=== PATIENT | male | born 1950 | race Caucasian/White ===

== ENCOUNTER → 2019-05-06 10:06 | Outpatient (CLI) | payer OTHER, SELFPAY ==
--- NOTE | 2019-05-06 | DI.RAD.S_ITS ---
PROCEDURE: FL BARIUM SWALLOW W SPEECH INDICATIONS: Other dysphagia TECHNIQUE: Examination was conducted in conjunction with speech pathology per standard protocol. In the lateral projection, filming was performed of the patient swallowing. AP projection filming may also be performed with patient swallowing. COMPARISON: None. FINDINGS: Function: The oral preparatory phase appears normal, with proper containment. The subsequent oral propulsive phase, pharyngeal phase, and esophageal phase of swallowing also appear normal with all proffered substances. Occasional flash laryngeal penetration. No definite tracheal aspiration. No pathologic vallecular pooling. Morphology: No cricopharyngeal bar is identified. No cervical esophageal webs. No Zenker's diverticulum. No strictures. IMPRESSION: Occasional flash laryngeal penetration Dictated by: Alexis Wilson M.D. on 05/06/2019 at 12:44 Approved by: Alexis Wilson M.D. on 05/06/2019 at 12:45
--- NOTE | 2019-05-06 16:50 | ST.SWALLOW ---
Visit Care Team Role Provider Type Clint Green MD Primary Care Provider Physician Specialty: Internal Medicine Address: [address] [place] [address], [id number] Email: [email or web address] Santo Baker MD Attending Provider Physician Specialty: Ear, Nose, Throat Address: [address] [place] [address], [id number] Email: [email or web address] Modified Barium Swallow Study [email or web address] Modified Barium Swallow Study Start: 05/06/19 10:58 Freq: Status: Active Protocol: Document 05/06/19 10:59 KHARI (Rec: 05/06/19 12:28 KHARI [id number]) Modified Barium Swallow Study Total Time Visit Start Time 10:20 Visit Stop Time 10:50 Total Visit Minutes [address] Chirag Ortiz Reason for Referral Dysphagia Setting Setting Outpatient Care Patient Information Identification Type Name,ID Card Patient History The pt is a pleasant 68-yr-old male who has been experiencing frequent coughing and choking events with intake of solids only over the last year, one of which nearly became an emergency. He has just completed a 90-day trial of medication for acid reflux, which he stated appears to have helped significantly, as he has not had any such episodes since being on the medication. 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 He denies residual effects and denies hx of pneumonia or neurological disease including stroke. Subjective Observations The pt arrived on time, self- ambulating. He provided case history and was able to follow all instructions throughout the study. Patient Positioning Position View Lat-A/P Imaging Lateral View Textures Administered Trials Presented Thin Liquid via Spoon,Thin Liquid via Cup,Poulan Liquid via Spoon,Poulan Liquid via Cup,Honey Liquid via Spoon, Dysphagia Blenderized Textures ,Regular Textures Oral Phase Source: MBSIMP (TM) (C) Bolus Specific Scoring Grid Lip Closure No Impairment (WNL) Tongue Control During Bolus Hold No Impairment (WNL) Bolus Prep/Mastication No Impairment (WNL) Bolus Transport/Lingual Motion No Impairment (WNL) A/P Lingual Propulsion Delay No Oral Residue WFL Residue Clearing No Impairment (WNL) Nasal Regurgitation No Additional Oral Phase Observations Oral Peripheral Exam: All features are symmetrical and WNL of strength, coordination and ROM. Pt has natural dentition with some individual molars missing; remaining dentition in adequate condition. The pt denies difficulty with mastication. Oral Phase: WNL. Pharyngeal Phase Source: MBSIMP (TM) (C) Bolus Specific Scoring Grid Delayed Initiation of Pharyngeal Swallow Yes: Frequently to level of vallecula w/ all consistencies Soft Palate Elevation No Impairment (WNL) Tongue Base Strength/Range of Motion WFL Residue Along the Tongue Base Yes: Trace to mild, reduced w/ increased bolus bulk Clearance of Residue Along Tongue Base WFL Laryngeal Elevation Mild Impairment Anterior Hyoid Movement WFL Epiglottic Range of Motion No Impairment (WNL) Vallecular Residue Yes: Trace Clearance of Vallecular Residue WFL Laryngeal Vestibular Closure WFL Pharyngeal Stripping Wave No Impairment (WNL) Pharyngeal Contraction No Impairment (WNL) Posterior Pharyngeal Wall Residue No Upper Esophageal Sphincter Opening No Impairment (WNL) Residue in the Pyriform Sinuses Yes: Occasional trace, reduced w/ increased bolus bulk Clearance of Residue in the Pyriform WFL Sinuses Pharyngoesophageal Backflow Observed No Additional Pharyngeal Phase Observations Flash penetration of thin liquid was observed during 1 of 2 consecutive cup sip trials. No cough reflex. No other penetration or aspiration was observed. Minimally impaired laryngeal elevation and closure of the laryngeal vestibule is present ; however, pharyngeal swallow is WFL for pt's age. A/P View Textures Administered Trials Presented Thin Liquid via Cup,Poulan Liquid via Cup,Pudding Thick Liquid via Spoon,Barium Tablet A/P View Observations Pharyngeal Contraction No Impairment (WNL) Esophageal Clearance Upright Position Minimal Impairment Additional Observations Slowed emptying of pudding into stomach was observed and did clear with thin liquid wash. NTL and barium tablet cleared the esophagus in a timely manner. No retrograde movement observed. Please refer to Radiologist's report. Clinical Impressions Findings The pt presented with swallow within functional limits. Minimally reduced laryngeal elevation and closure of laryngeal vestibule was present, contributing to one episode of flash penetration of thin liquid (first of four swallows) without cough reflex . The pt consumed a second trial of consecutive sips of thin liquid without penetration or aspiration. Suspect GERD/LPR was the major contributor to the pt's swallow difficulties. The pt may benefit from a short course of dysphagia treatment to establish an exercise program to increase/ maintain strength of swallow musculature, particularly if acid reflux recurs; however, he is at low risk of aspiration and function is largely normal for his age. Recommendations Diet Liquids Order Thin Diet Order Regular Medication Recommendation As Tolerated Aspiration Precautions Recommended Precautions Upright at 90 Degrees Treatment Plan Additional Recommended Referrals Pt is referred back to Dr. Ortiz for follow-up. Placement Recommendation After Discharge Home
== END ==
PROVIDERS: PCP Internal Medicine; Visit Provider Otolaryngology
DX: R13.19 Other dysphagia (principal)
CPT/HCPCS: 74230; 92611

== ENCOUNTER → 2020-01-22 18:44 | Outpatient (ROUT) | payer OTHER, SELFPAY ==
[2020-01-22 19:43] LABS: Aspartate Aminotransferase 24 IU/L (17-59); BUN Creatinine Ratio 30.4 (6-22); Blood Urea Nitrogen 28 mg/dL (9-20); Calcium 9.2 mg/dL (8.4-10.2); Carbon Dioxide 32 mmol/L (22-32); Chloride 101 mmol/L (98-107); Cholesterol 164 mg/dL (140-199); Estimated Glomerular Filt Rate > 60.0 mL/min (>60); Glucose 93 mg/dL (80-110); HDL Cholesterol 34 mg/dL (40-60); HEMOLYSIS < 15 (0-50); LDL Cholesterol Calculated 70 mg/dL (<100); Potassium 4.1 mmol/L (3.4-5.1); Sodium 138 mmol/L (137-145); Triglycerides 299 mg/dL (35-150)
[2020-01-22 20:15] LABS: Prostate Specific Antigen 1.27 ng/mL (0.10-4.00)
== END ==
PROVIDERS: PCP Internal Medicine; Visit Provider Internal Medicine
DX: E78.2 Mixed hyperlipidemia (principal); I10 Essential (primary) hypertension; N40.1 Benign prostatic hyperplasia with lower urinary tract symptoms
CPT/HCPCS: 80048; 80061; 84153; 84450

== ENCOUNTER 2020-09-26 20:39 | Emergency (ER) | payer OTHER, SELFPAY ==
[2020-09-26 20:43] VITALS: BP 232/122; PULSE 91; RESP 18; TEMP 37.5; O2SAT 98; BMI 32.5
--- NOTE | 2020-09-26 20:56 | ED.GENADULT ---
HPI - General Adult General Chief complaint: Skin/Abscess/Foreign Body Stated complaint: CHOCKING HARD TIME BREATHING Time Seen by Provider: 09/26/20 20:49 Source: patient Mode of arrival: Ambulatory Limitations: no limitations History of Present Illness HPI narrative: This is a 70-year-old male comes emergency department with complaint of difficulty breathing and choking. Patient states he has had these episodes happen in the past. Tonight he was eating a steak and potato dinner when he felt like it got stuck. He has not been able to drink or eat anything else. He has been spitting up his own saliva/secretions. Patient states he has been that many people have this problem, he is on a generic Prilosec. He has had a scope in the last year for evaluation. He does take medicine for aspirin, hypertension, dyslipidemia, BPH but denies any prior cardiac history. He is not on any other anticoagulants besides aspirin. He denies any allergies to medications. Related Data Home Medications Medication Instructions Recorded Confirmed aspirin [facility] #0 12/22/16 finasteride Q DAY #0 12/22/16 hydrochlorothiazide Q DAY #0 12/22/16 losartan Q DAY #0 12/22/16 simvastatin Q DAY #0 12/22/16 tamsulosin [Flomax] Q DAY #0 12/22/16 Allergies Allergy/AdvReac Type Severity Reaction Status Date / Time No Known Allergies Allergy Uncoded 08/28/17 13:01 Review of Systems Review of Systems ROS Unobtainable: All systems reviewed & are unremarkable except as noted in HPI and below Patient History Social History Smoking Status: Never smoker Exam Narrative Exam Narrative: GENERAL: Alert and oriented x three, well-nourished male in mild distress. Patient has a bag next to him and he has been spitting and throwing up saliva. HEENT: Head normocephalic, atraumatic, EOMI, pupils reactive, face symmetric, moist mucous membranes NECK: Supple, full range of motion CARDIOVASCULAR: Regular rate and rhythm without murmurs, rubs or gallops. RESPIRATORY: Breath sounds equal bilaterally, no wheezes rales or rhonchi. ABDOMEN: Soft, nontender. Normoactive bowel sounds all 4 quadrants. No guarding or rebound, rigidity, no mass : No CVA tenderness EXTREMITIES: Normal range of motion, no clubbing or edema. Neurovascularly intact NEUROLOGICAL: Cranial nerves II through XII grossly intact. Moving all extremities SKIN: Warm, dry, no petechiae, no rashes or lesions. Initial Vital Signs Initial Vital Signs: Vital Signs Temperature 99.5 F 09/26/20 20:43 Pulse Rate 91 H 09/26/20 20:43 Respiratory Rate 18 09/26/20 20:43 Blood Pressure 232/122 H 09/26/20 20:43 Pulse Oximetry 98 09/26/20 20:43 Course Orders Ordered: Discontinued Medications Glucagon (Glucagon,Human Recombinant 1 Mg/Ml Vial) 1 mg IV NOW ONE Stop: 09/26/20 20:50 Ondansetron HCl (Ondansetron 4 Mg/2 Ml Inj) 4 mg IV NOW ONE Stop: 09/26/20 20:50 Last Admin: 09/26/20 21:09 Dose: 4 mg Documented by: CAROLINA Reevaluation(s) Reevaluation #1: Patient had Zofran and during discussion just before giving the glucagon patient felt that the food bolus had moved and he is now able to swallow his own saliva as well as fluids here in the department. Time: 21:49 Vital Signs Vital signs: Vital Signs - 8 hr 09/26/20 20:43 Temperature 99.5 F Pulse Rate 91 H Respiratory Rate 18 Blood Pressure 232/122 H Pulse Oximetry 98 Discharge Plan Departure Patient Disposition: Home Clinical Impression: Food impaction of esophagus Instructions: Steakhouse Syndrome Activity Restrictions/Additional Instructions: Follow-up with general surgery or a tableau lead for repeat EGD to evaluate for strictures or other changes that are causing her symptoms. It is appropriate to continue to take your generic Prilosec. Make sure you are chewing food fully before swallowing. Please return if you have any recurrent symptoms, inability to swallow your own saliva, secretions or spit, if you start having vomiting, new chest pain, shortness of breath, lightheadedness or passing out or other new or concerning symptoms. Prescriptions: No Action aspirin 81 MG tablet,delayed release (DR/EC) [facility] Qty: 0 RF: 0 losartan 100 MG tablet Q DAY Qty: 0 RF: 0 hydrochlorothiazide 25 MG tablet Q DAY Qty: 0 RF: 0 finasteride 5 MG tablet Q DAY Qty: 0 RF: 0 simvastatin 40 MG tablet Q DAY Qty: 0 RF: 0 tamsulosin [Flomax] 0.4 MG capsule,extended release 24hr Q DAY Qty: 0 RF: 0 Referrals: Clint Green MD [Primary Care Provider] - Avi Spears MD [Physician] -
[2020-09-26] MEDS: ONDANSETRON 4 MG/2 ML INJ IV (21:09)
--- NOTE | 2020-09-26 21:16 | PC.NURSE ---
Patient reports after last emesis he felt as though the food bolus may have moved. He no longer reports pain in chest or difficulty swallowing. Patient able to drink jordana lyn with ease.
--- NOTE | 2020-09-26 21:42 | PC.NURSE ---
Patient arrived unable to swallow saliva. Patient reports food bolus of steak/potato has history of similar episode. Shortly after being in department patient vomited and felt as though bolus may have moved. Pain in chest and difficulty swallowing saliva subsided. Tolerating liquids and swallowing saliva with no difficulty
== END 2020-09-26 22:11 | disposition home or self-care (01) ==
PROVIDERS: Emergency Provider Emergency Medicine; PCP Internal Medicine
DX: T18.128A Food in esophagus causing other injury, initial encounter (principal)
CPT/HCPCS: 96374; 99283; 99284; J2405

== ENCOUNTER → 2020-09-30 18:59 | Outpatient (ROUT) | payer OTHER, SELFPAY ==
[2020-09-30 20:03] LABS: Aspartate Aminotransferase 24 IU/L (17-59); BUN Creatinine Ratio 35.2 (6-22); Blood Urea Nitrogen 31 mg/dL (9-20); Calcium 9.7 mg/dL (8.4-10.2); Carbon Dioxide 29 mmol/L (22-32); Chloride 102 mmol/L (98-107); Cholesterol 149 mg/dL (140-199); Estimated Glomerular Filt Rate > 60.0 mL/min (>60); Glucose 106 mg/dL (80-110); HDL Cholesterol 33 mg/dL (40-60); HEMOLYSIS < 15 (0-50); LDL Cholesterol Calculated 74 mg/dL (<100); Potassium 3.7 mmol/L (3.4-5.1); Sodium 141 mmol/L (137-145); Triglycerides 210 mg/dL (35-150)
[2020-09-30 20:32] LABS: Prostate Specific Antigen 1.28 ng/mL (0.10-4.00)
== END ==
PROVIDERS: PCP Internal Medicine; Visit Provider Internal Medicine
DX: I10 Essential (primary) hypertension (principal); E78.2 Mixed hyperlipidemia; N40.1 Benign prostatic hyperplasia with lower urinary tract symptoms
CPT/HCPCS: 80048; 80061; 84153; 84450

== ENCOUNTER → 2023-02-07 14:15 | Outpatient (CLI) | payer OTHER, SELFPAY ==
[2023-02-07 15:19] LABS: Hematocrit 40.1 % (41-53); Hemoglobin 13.8 g/dL (13.5-17.5); Mean Corpuscular HGB Conc 34.6 % (30-36); Mean Corpuscular Hemoglobin 31.3 PG (26-34); Mean Corpuscular Volume 90.6 fL (80-100); Platelet Count 190 X10^3/uL (150-400); Red Blood Cell Count 4.42 X10^6/uL (4.5-5.9); Red Cell Distribution Width 13.1 % (11.6-14.8); White Blood Cell Count 6.7 X10^3/uL (4.5-11.0)
[2023-02-07 15:50] LABS: Alanine Aminotransferase 22 IU/L (<50); Albumin 4.2 g/dL (3.5-5.0); Albumin Globulin Ratio 1.5 (1.0-2.8); Alkaline Phosphatase 51 U/L (38-126); Aspartate Aminotransferase 27 IU/L (17-59); BUN Creatinine Ratio 27.4 (6-22); Bilirubin Total 0.6 mg/dL (0.2-1.3); Blood Urea Nitrogen 23 mg/dL (9-20); Calcium 9.4 mg/dL (8.4-10.2); Carbon Dioxide 30 mmol/L (22-32); Chloride 102 mmol/L (98-107); Cholesterol 156 mg/dL (140-199); Estimated Glomerular Filt Rate > 60 mL/min (>60); Globulin 2.8 g/dL (1.7-4.1); Glucose 107 mg/dL (80-110); HDL Cholesterol 30 mg/dL (40-60); HEMOLYSIS < 15 (0-50); LDL Cholesterol Calculated 74 mg/dL (<100); Potassium 3.8 mmol/L (3.4-5.1); Sodium 140 mmol/L (137-145); Triglycerides 260 mg/dL (35-150)
[2023-02-07 16:19] LABS: Prostate Specific Antigen 1.28 ng/mL (0.10-4.00)
[2023-02-07 16:20] LABS: TSH w/ Reflex to FT4 2.36 uIU/mL (0.47-4.68)
[2023-02-07 16:38] LABS: Vitamin B12 318 pg/mL (239-931)
== END ==
PROVIDERS: PCP Internal Medicine; Referring Provider Internal Medicine; Visit Provider Internal Medicine
DX: E53.8 Deficiency of other specified B group vitamins (principal); I10 Essential (primary) hypertension; N40.1 Benign prostatic hyperplasia with lower urinary tract symptoms; N13.8 Other obstructive and reflux uropathy; E78.2 Mixed hyperlipidemia
CPT/HCPCS: 36415; 80053; 80061; 82607; 84153; 84443; 85027

== ENCOUNTER → 2023-09-26 15:32 | Outpatient (CLI) | payer OTHER, SELFPAY ==
[2023-09-26 16:29] LABS: Hematocrit 39.8 % (41-53); Hemoglobin 13.8 g/dL (13.5-17.5); Mean Corpuscular HGB Conc 34.7 % (30-36); Mean Corpuscular Hemoglobin 31.3 PG (26-34); Mean Corpuscular Volume 90.1 fL (80-100); Platelet Count 200 X10^3/uL (150-400); Red Blood Cell Count 4.42 X10^6/uL (4.5-5.9); Red Cell Distribution Width 13.7 % (11.6-14.8); White Blood Cell Count 6.9 X10^3/uL (4.5-11.0)
[2023-09-26 16:43] LABS: Erythrocyte Sedimentation Rate 4 MM/HR (0-15)
[2023-09-26 16:45] LABS: C-Reactive Protein Quant < 0.5 mg/dL (<1.0)
== END ==
PROVIDERS: PCP Internal Medicine; Referring Provider Internal Medicine; Visit Provider Internal Medicine
DX: M35.3 Polymyalgia rheumatica (principal)
CPT/HCPCS: 85027; 85651; 86140

== ENCOUNTER → 2023-10-15 11:25 | Outpatient (CLI) | payer OTHER, SELFPAY ==
[2023-10-15 13:22] LABS: Aspartate Aminotransferase 20 IU/L (17-59); BUN Creatinine Ratio 39.8 (6-22); Blood Urea Nitrogen 33 mg/dL (9-20); Calcium 8.9 mg/dL (8.4-10.2); Carbon Dioxide 30 mmol/L (22-32); Chloride 104 mmol/L (98-107); Cholesterol 190 mg/dL (140-199); Estimated Glomerular Filt Rate > 60 mL/min (>60); Glucose 93 mg/dL (80-110); HDL Cholesterol 42 mg/dL (40-60); HEMOLYSIS < 15 (0-50); LDL Cholesterol Calculated 120 mg/dL (<100); Potassium 4.2 mmol/L (3.4-5.1); Sodium 138 mmol/L (137-145); Triglycerides 141 mg/dL (35-150)
[2023-10-15 13:49] LABS: Prostate Specific Antigen 1.33 ng/mL (0.10-4.00)
== END ==
PROVIDERS: PCP Internal Medicine; Referring Provider Internal Medicine; Visit Provider Internal Medicine
DX: N40.1 Benign prostatic hyperplasia with lower urinary tract symptoms (principal); E78.2 Mixed hyperlipidemia; N13.8 Other obstructive and reflux uropathy; I10 Essential (primary) hypertension
CPT/HCPCS: 36415; 80048; 80061; 84153; 84450

== ENCOUNTER → 2023-11-20 11:44 | Outpatient (CLI) | payer OTHER, SELFPAY | PROVIDERS: PCP Internal Medicine; Visit Provider Nurse Practitioner Family | DX: J02.9 Acute pharyngitis, unspecified (principal) | CPT/HCPCS: 87070 ==